=== PATIENT | female | born 1950 | race African-American/Black ===

== ENCOUNTER 2020-12-16 11:41 | Emergency (ER) | payer OTHER | END 2020-12-16 14:41 | disposition home or self-care (01) | LOC: JVIRT 11:41 | DX: Z11.52 Encounter for screening for COVID-19 (principal) | CPT/HCPCS: C9803; G2251-GT; Q3014-GT; U0003 ==

== ENCOUNTER 2021-01-06 10:02 | Emergency (ER) | payer OTHER ==
[2021-01-07 07:08] LABS: SARS-CoV-2 NAA Not Detected (Not Detected)
== END 2021-01-06 13:17 | disposition left against medical advice (07) ==
LOC: JVIRT 10:02
DX: Z11.52 Encounter for screening for COVID-19 (principal)
CPT/HCPCS: C9803; G2251-GT; Q3014-GT; U0003; U0005

== ENCOUNTER 2024-07-24 09:36 | Emergency (ER) | payer OTHER ==
[2024-07-24 09:43] VITALS: TEMP 97.6; BMI 37.1
[2024-07-24 11:04] LABS: BASO % 0.5 % (0-2.0); HEMATOCRIT 37.7 % (32.4-45.2); HEMOGLOBIN 11.6 GM/dL (10.7-15.3); LYMPH % 11.1 % (8-40); MCH 23.7 pg (25.7-33.7); MCHC 30.7 g/dl (32.0-36.0); MEAN CELL VOLUME 77.1 fl (80-96); MEAN PLT VOLUME 8.5 fl (7.5-11.1); MONO % 7.7 % (3.8-10.2); NEUT % 78.7 % (42.8-82.8); PLATELET COUNT 244 10^3/uL (134-434); RBC 4.89 M/mm3 (3.60-5.2); RDW 18.5 % (11.6-15.6); WHITE BLOOD COUNT 12.2 K/mm3 (4.0-10.0)
[2024-07-24 11:10] LABS: INR 1.07 (0.83-1.09); PROTHROMBIN TIME (PATIENT) 12.3 SEC (9.7-13.0)
[2024-07-24 11:12] LABS: ACTIVATED PTT 30.1 SECONDS (25.2-36.5)
[2024-07-24 11:25] LABS: POTASSIUM 3.6 mmol/L (3.5-5.1)
[2024-07-24 11:30] LABS: CALCIUM 9.6 mg/dL (8.5-10.1)
[2024-07-24 11:31] LABS: ALBUMIN 3.7 g/dl (3.4-5.0)
[2024-07-24 11:35] LABS: CREATININE 0.8 mg/dL (0.55-1.3)
[2024-07-24 11:36] LABS: BILIRUBIN,TOTAL 0.9 mg/dL (0.2-1); TOT PROT 7.6 g/dl (6.4-8.2)
[2024-07-24 13:24] LABS: HIV INTERPRETATION NEGATIVE (NEGATIVE)
[2024-07-24 14:55] LABS: BASO % 1.8 % (0-2.0); EOS % 1.6 % (0-4.5); HEMATOCRIT 35.2 % (32.4-45.2); HEMOGLOBIN 11.3 GM/dL (10.7-15.3); LYMPH % 13.2 % (8-40); MCH 24.4 pg (25.7-33.7); MCHC 32.1 g/dl (32.0-36.0); MEAN PLT VOLUME 8.3 fl (7.5-11.1); MONO % 5.8 % (3.8-10.2); NEUT % 77.6 % (42.8-82.8); PLATELET COUNT 237 10^3/uL (134-434); RBC 4.63 M/mm3 (3.60-5.2); WHITE BLOOD COUNT 10.8 K/mm3 (4.0-10.0)
[2024-07-24 15:10] VITALS: BP 116/57; PULSE 72; RESP 18
== END 2024-07-24 15:16 | disposition home or self-care (01) ==
LOC: JER 09:36
DX: K62.5 Hemorrhage of anus and rectum (principal); B19.20 Unspecified viral hepatitis C without hepatic coma; R42 Dizziness and giddiness; R10.9 Unspecified abdominal pain; Z20.822 Contact with and (suspected) exposure to COVID-19
CPT/HCPCS: 0241U-QW; 36415; 74177-TC; 80053; 82272; 83605; 85025; 85610; 85730; 86803; 86850; 86900; 86901; 87389; 87522; 99285-25; Q9967